=== PATIENT | male | born 1950 | race Caucasian/White ===

== ENCOUNTER → 2018-01-12 | Outpatient (CLI) | payer OTHER ==
[~2018-01-12] MED LIST: ASPI81CH
[2018-01-12 12:29] LABS: BASOPHILS ABSOLUTE AUTO 0.05 K/mm3 (0.00-0.23); BASOPHILS PERCENT AUTO 1 % (0-2); EOSINOPHILS ABSOLUTE AUTO 0.27 K/mm3 (0.00-0.68); EOSINOPHILS PERCENT AUTO 3 % (0-6); Hematocrit 38.8 % (37.0-53.0); Hemoglobin 12.7 g/dL (13.5-17.5); IMMATURE GRAN ABSOLUTE AUTO 0.04 K/mm3 (0.00-0.10); IMMATURE GRAN PERCENT AUTO 0 % (0-1); LYMPHOCYTES ABSOLUTE AUTO 1.61 K/mm3 (0.84-5.20); LYMPHOCYTES PERCENT AUTO 17 % (21-46); MONOCYTES ABSOLUTE AUTO 1.42 K/mm3 (0.16-1.47); MONOCYTES PERCENT AUTO 15 % (4-13); Mean Corpuscular HGB 27.3 pg (26.0-34.0); Mean Corpuscular HGB Conc 32.7 g/dL (31.5-36.5); Mean Corpuscular Volume 83 fL (80-100); Mean Platelet Volume 9.6 fL (9.1-12.4); NEUTROPHILS ABSOLUTE AUTO 6.05 K/mm3 (1.96-9.15); NEUTROPHILS PERCENT AUTO 64 % (41-73); Platelet Count 311 K/mm3 (150-400); RDW Coefficient Variation 13.1 % (11.7-14.2); RDW Standard Deviation 39.6 fL (35.1-46.3); Red Blood Cell Count 4.65 M/mm3 (4.30-5.90); White Blood Cell Count 9.44 K/mm3 (4.00-11.30)
[2018-01-12 12:35] LABS: Bun/Creatinine Ratio 17.4 (12.0-20.0); Creatinine, Blood 2.19 mg/dL (0.60-1.20); Potassium, Blood 4.3 mmol/L (3.5-5.5)
[2018-01-12 12:36] LABS: Calcium, Blood 14.6 mg/dL (8.5-10.1)
[2018-01-12 13:07] LABS: Albumin, Blood 3.3 g/dL (3.4-5.0); Albumin/Globulin Ratio 0.6 (0.8-1.8); Bilirubin, Direct 0.2 mg/dL (0.0-0.3); Bilirubin, Indirect 0.4 mg/dL (0.1-0.7); Bilirubin, Total 0.6 mg/dL (0.1-1.0); Globulin, Blood 5.1 g/dL (2.2-4.0); Total Protein, Blood 8.4 g/dL (6.4-8.2)
== END | disposition home or self-care (01) ==
LOC: LAB EV 12:24
PROVIDERS: Family Medicine
DX: B34.9 Viral infection, unspecified (principal)
CPT/HCPCS: 80048; 80076; 82330; 83970; 85025

== ENCOUNTER 2018-02-04 14:10 | Day surgery (SDC) | payer OTHER | END 2018-02-04 22:45 | disposition home or self-care (01) | LOC: US 14:10 | PROC: 07D13ZX Extraction of Right Neck Lymphatic, Percutaneous Approach, Diagnostic (ICD-10-PCS; principal; 2018-02-04) | DX: L92.8 Other granulomatous disorders of the skin and subcutaneous tissue (principal); L04.0 Acute lymphadenitis of face, head and neck | CPT/HCPCS: 38505; 76942; 88305 ==

== ENCOUNTER 2018-12-15 05:45 | Day surgery (SDC) | payer OTHER ==
[~2018-12-15] VITALS: Ht 170.2 cm; Wt 84.8 kg
[~2018-12-15 05:45] MED LIST changes: +ACET325 PO; +Hair, Skin & N1 EACH PO; +Zofran8 MG PO
[2018-12-15] MEDS ORDERED: NAPR220 PO (06:47)
--- NOTE | 2018-12-15 07:01 | NUR ---
History, Chart, Medications and Allergies reviewed before start of procedure.Patient confirms NPO status and agrees with scheduled surgery. Lungs clear T/O to Auscultation. Patient reports completing Chlorhexadine shower X2 prior to admission to hospital.Surgical site prepped with 2% Chlorhexidine cloth wipe.
--- NOTE | 2018-12-15 09:00 | NUR ---
PT IS PLEASANT AND AWAKE, SITTING UP AND DRINKING WATER. WAS CALLED AND WILL BE ON WAY TO GET PT AROUND 0920. PT STABLE. [facility] CDI PLACEMENT WAS CONFIRMED IN PACU.
--- NOTE | 2018-12-15 09:23 | NUR ---
Discharge instructions reviewed with patient. Patient verbalizes understanding. Copy given to patient to take home. Patient States Post-Procedure ride home has been arranged. PT TOLERATED FLUIDS, DENIES PAIN. WILL BE PT RIDE HOME. PT HAS ALL D/C PAPERWORK. STATES NO QUESTIONS OR CONCERNS. PATRICIA SIMONS CDI. Discharged via wheelchair to private car for ride home. PT HAS ALL PERSONAL BELONGINGS.
== END 2018-12-15 22:34 | disposition home or self-care (01) ==
LOC: ORSCMMR 05:45 → ORD 07:30 → ORSCMMR 07:30
PROVIDERS: Surgery
PROC: B543ZZA Ultrasonography of Right Jugular Veins, Guidance (ICD-10-PCS; principal; 2018-12-15 07:30)
PROC: 05HM33Z Insertion of Infusion Device into Right Internal Jugular Vein, Percutaneous Approach (ICD-10-PCS; principal; 2018-12-15 07:30)
DX: C83.38 Diffuse large B-cell lymphoma, lymph nodes of multiple sites (principal)
CPT/HCPCS: 77001; 93005; 93010; C1788; J0690; J1100; J1642; J2250; J2405; J3010; J7030